=== PATIENT | female | born 1980 | race Caucasian/White ===

== ENCOUNTER 2017-03-13 05:26 | Emergency (ER) | payer SELFPAY ==
[2017-03-13] MEDS ORDERED: Metoclopramide 10 MG/2 ML SDV IVPUSH ONE (06:07)
[2017-03-13] MEDS ORDERED: LORazepam 2 MG/ML MDV IVPUSH ONE (06:08)
[2017-03-13] MEDS ORDERED: Sodium Chloride 0.9% 1,000 ML IV SCH (06:15)
--- NOTE | 2017-03-13 06:20 | EDM.PDOC ---
ED HPI GENERAL MEDICAL PROBLEM - General Chief Complaint: Gastrointestinal Problem Stated Complaint: VOMITING/COLD Time Seen by Provider: 03/13/17 06:00 Source of Information: Reports: Patient, Family History Limitations: Reports: No Limitations - History of Present Illness INITIAL COMMENTS - FREE TEXT/NARRATIVE: 36-year-old female had a fairly sudden onset of nausea and vomiting around 11: 00 last night, has been vomiting all night long. She also has a headache. She is very anxious. She had 2 beers last night, does not drink very often and had a very similar episode which happened to her one year ago which needed to be treated in the hospital. Denies any diarrhea and has no other pain other than a headache. The episodes of emesis are actually slowing down but she felt she needed to be seen. She has no long-standing history of cyclic vomiting syndrome. Duration: Hour(s): (7 hours) Severity: Moderate Associated Symptoms: Reports: Headaches, Malaise, Nausea/Vomiting, Weakness. Denies: Shortness of Breath Head Pain Score (Numeric/FACES): 6 - Related Data Allergies Allergy/AdvReac Type Severity Reaction Status Date / Time No Known Allergies Allergy Verified 03/13/17 05:49 Home Meds: Home Meds NK [No Known Home Meds] 03/13/17 [History] Past Medical History - Past Surgical History GI Surgical History: Reports: Hernia, Inguinal Social & Family History - Tobacco Use Smoking Status *Q: Unknown Ever Smoked ED ROS GENERAL - Review of Systems Review Of Systems: See Below Constitutional: Reports: Chills, Malaise HEENT: Denies: Throat Pain Respiratory: Denies: Shortness of Breath, Cough Cardiovascular: Denies: Chest Pain GI/Abdominal: Reports: Nausea, Vomiting. Denies: Abdominal Pain, Diarrhea : Reports: No Symptoms Skin: Reports: No Symptoms Neurological: Reports: Headache Psychiatric: Reports: Anxiety ED EXAM, GENERAL - Physical Exam Exam: See Below Exam Limited By: No Limitations General Appearance: Alert, Mild Distress (Still fairly uncomfortable, nauseous) Eye Exam: Bilateral Eye: Normal Inspection (Normal hydration, no jaundice) Throat/Mouth: Normal Inspection Respiratory/Chest: No Respiratory Distress, Lungs Clear Cardiovascular: Regular Rate, Rhythm GI/Abdominal: Soft, Abnormal Bowel Sounds (Bowel sounds are hypoactive) Extremities: Normal Inspection. No: Pedal Edema Neurological: Alert, Oriented Psychiatric: Anxious Skin Exam: Warm, Dry Course - Vital Signs Last Recorded V/S: Last Vital Signs Temp 94.5 F L 03/13/17 05:46 Pulse 82 03/13/17 05:46 Resp 16 03/13/17 05:46 BP 146/89 H 03/13/17 05:46 Pulse Ox 100 03/13/17 05:46 - Orders/Labs/Meds Labs: Laboratory Tests 03/13/17 03/13/17 03/13/17 Range/Units 06:15 06:15 06:15 WBC 13.2 H (4.5-11.0) K/uL RBC 5.00 (3.30-5.50) M/uL Hgb 12.2 (12.0-15.0) g/dL Hct 39.1 (36.0-48.0) % MCV 78 L (80-98) fL MCH 24 L (27-31) pg MCHC 31 L (32-36) % Plt Count 348 (150-400) K/uL Neut % (Auto) 83 H (36-66) % Lymph % (Auto) 12 L (24-44) % [place] % (Auto) 4 (2-6) % Eos % (Auto) 1 L (2-4) % Baso % (Auto) 1 (0-1) % Sodium 140 (140-148) mmol/L Potassium 3.8 (3.6-5.2) mmol/L Chloride 104 (100-108) mmol/L Carbon Dioxide 29 (21-32) mmol/L Anion Gap 7.3 (5.0-14.0) mmol/L BUN 12 (7-18) mg/dL Creatinine 0.7 (0.6-1.0) mg/dL Est Cr Clr Drug Dosing 91.49 mL/min Estimated GFR (MDRD) > 60 (>60) Glucose 115 H (74-106) mg/dL Calcium 9.2 (8.5-10.1) mg/dL Amylase 79 (25-115) U/L Lipase 113 (73-393) U/L Meds: Medications Discontinued Medications Generic Name Dose Route Start Last Admin Trade Name Freq PRN Reason Stop Dose Admin Sodium Chloride 1,000 mls @ 1,000 mls/hr 03/13/17 06:15 12/08/17 06:19 Normal Saline IV 1,000 mls/hr ASDIRECTED LILY Administration Lorazepam 0.5 mg 03/13/17 06:08 03/13/17 06:19 Ativan IVPUSH 03/13/17 06:09 0.5 mg ONETIME ONE Administration Metoclopramide HCl 5 mg 03/13/17 06:07 03/13/17 06:19 Reglan IVPUSH 03/13/17 06:08 5 mg ONETIME ONE Administration - Re-Assessments/Exams Free Text/Narrative Re-Assessment/Exam: 03/13/17 06:20 Patient was allowed to sip on water. An IV was started and she was given 5 mg of Reglan IV along with 0.5 mg of Ativan IV. Also given 1 L of normal saline, while an amylase, lipase, BMP and CBC were obtained. 03/13/17 06:48 All labs were reassuring and normal. White count was slightly elevated which is to be expected. Patient was feeling much better after the medications. After her liter of fluid she can be discharged. Departure - Departure Time of Disposition: 07:22 Disposition: Home, Self-Care 01 Condition: Good Clinical Impression: Vomiting - Discharge Information Instructions: Nausea and Vomiting, Adult, [id number] Referrals: Sussy Magallon PA [Primary Care Provider] - Forms: ED Department Discharge Care Plan Goals: Rest today, increase fluids as tolerated and try to resume regular diet and activity tomorrow. Return to the emergency room if worsening or concerns.
== END 2017-03-13 07:22 | disposition home or self-care (01) ==
LOC: JP.ED 05:26
DX: R11.2 Nausea with vomiting, unspecified (principal)
CPT/HCPCS: 36415; 80048; 82150; 83690; 85025; 96361; 96374; 96375; 99284; J2060; J2765; J7040